=== PATIENT | female | born 1995 | race Caucasian/White ===

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

== ENCOUNTER 2017-02-27 08:51 | Emergency (ER) | payer OTHER ==
[~2017-02-27] VITALS: Ht 167.6 cm; Wt 59.1 kg
[~2017-02-27 08:51] MED LIST changes: -FIOR1CAP PO; -IBUP80TA PO; -ONDA8TAB8 PO; -RIZA10TA2 PO; -XULA1DIS
[2017-02-27] MEDS ORDERED: RIZA10TA2 PO (09:09)
[2017-02-27] MEDS ORDERED: XULA1DIS (09:09)
[2017-02-27] MEDS ORDERED: FIOR1CAP PO (09:09)
[2017-02-27] MEDS ORDERED: ONDANSETRON 4 MG ORAL DISINTEGRATING TAB (S0181) PO ONE (11:15)
[2017-02-27] MEDS ORDERED: KETOROLAC 60 MG/2 ML VIAL (J1885) IM ONE (11:15)
[2017-02-27] MEDS ORDERED: IBUP80TA PO (12:04)
[2017-02-27] MEDS ORDERED: ONDA8TAB8 PO (12:05)
[2017-02-27 12:16] VITALS: BP 122/63
== END 2017-02-27 12:17 | disposition home or self-care (01) ==
LOC: M ED 08:51
DX: G43.909 Migraine, unspecified, not intractable, without status migrainosus (principal)
CPT/HCPCS: 96372; 99283; J1885

== ENCOUNTER → 2017-05-07 | Outpatient (REF) | payer OTHER | LOC: M LAB REF 16:20 | DX: J02.9 Acute pharyngitis, unspecified (principal) ==

== ENCOUNTER 2017-08-28 07:16 | Emergency (ER) | payer OTHER ==
[2017-08-28 08:27] LABS: BASO % 0.4 % (0.0-1.0); EOS # 0.2 10^3/uL (0.0-0.50); EOS % 3.3 % (0.0-3.0); HEMOGLOBIN 13.7 g/dl (12.0-15.5); IMMATURE GRANULOCYTE % 0.4 % (0-3.0); LYMPH # 2.1 10^3/uL (1.5-6.5); LYMPH % 43.8 % (24.0-44.0); MEAN CORPUSCULAR HEMOGLOBIN 29.7 pg (27.0-33.0); MEAN CORPUSCULAR HGB CONC 35.1 g/dl (32.0-36.5); MEAN CORPUSCULAR VOLUME 84.6 fl (80.0-96.0); MONO # 0.5 10^3/uL (0.0-0.8); MONO % 9.5 % (0.0-5.0); NEUTROPHILS # 2.1 10^3/uL (1.8-7.7); NEUTROPHILS % 42.6 % (36.0-66.0); PLATELET COUNT, AUTOMATED 219 10^3/uL (150-450); RED BLOOD COUNT 4.61 10^6/uL (4.00-5.40); RED CELL DISTRIBUTION WIDTH 12.5 % (11.5-14.5); WHITE BLOOD COUNT 4.8 10^3/uL (4.0-10.0)
[2017-08-28 08:41] LABS: INR 1.02; PROTHROMBIN TIME 13.5 SECONDS (12.4-14.5)
[2017-08-28 08:42] LABS: PARTIAL THROMBOPLASTIN TIME 29.7 SECONDS (26.8-37.9)
[2017-08-28 08:44] LABS: CONTROL LINE HCG INT CTR LINE PRESENT; HCG, SERUM QUALITATIVE NEGATIVE (NEGATIVE)
[2017-08-28 08:50] LABS: ANION GAP 6 MEQ/L (8-16); BLOOD UREA NITROGEN 6 MG/DL (7-18); CALCIUM LEVEL 8.8 MG/DL (8.5-10.1); CARBON DIOXIDE LEVEL 27 MEQ/L (21-32); CHLORIDE LEVEL 109 MEQ/L (98-107); CPK CREATINE PHOSPHOKINASE 90 U/L (26-192); CREATININE FOR GFR 1.04 MG/DL (0.55-1.30); GLUCOSE, FASTING 90 MG/DL (70-100); SODIUM LEVEL 142 MEQ/L (136-145); TROPONIN I < 0.02 NG/ML (< 0.10)
[2017-08-28 08:51] LABS: CK-MB VALUE MASS < 1.0 NG/ML (<3.6); MB/CK RELATIVE INDEX 1.11 (< OR =4)
[2017-08-28] MEDS: METOCLOPRAMIDE INJ 10MG/2ML VIAL (J2765) IV (09:56)
[2017-08-28] MEDS: KETOROLAC 30 MG/ML VIAL (J1885) IV (11:19)
== END 2017-08-28 12:37 | disposition home or self-care (01) ==
LOC: M ED 07:16
DX: G43.909 Migraine, unspecified, not intractable, without status migrainosus (principal); Z79.899 Other long term (current) drug therapy
CPT/HCPCS: J1885

== ENCOUNTER → 2018-02-18 | Outpatient (REF) | payer OTHER ==
[2018-02-18 16:42] LABS: AMYLASE 57 U/L (25-115)
[2018-02-18 16:42] LABS: LIPASE 107 U/L (73-393)
== END ==
LOC: M LAB REF 15:55
DX: R10.816 Epigastric abdominal tenderness (principal)
CPT/HCPCS: 82150

== ENCOUNTER → 2022-05-21 | Outpatient (REF) | payer OTHER ==
[~2022-05-21] MED LIST changes: +CEFD300C41 PO; +FIOR1CAP PO; +IBUP80TA PO; +IMIT50TA PO; +ONDA8TAB8 PO; +PAME10CA PO; +RIZA10TA2 PO; +XULA1DIS; +ZOFR4TAB14 PO; -ZOFR4TAB3 PO
== END ==
LOC: M LAB REF 16:36
PROVIDERS: ATTEND Obstetrics & Gynecology
DX: R10.2 Pelvic and perineal pain (principal)

== ENCOUNTER → 2022-05-25 | Outpatient (REF) | payer OTHER | LOC: M LAB REF 12:18 | PROVIDERS: ATTEND Obstetrics & Gynecology | DX: O36.80X0 Pregnancy with inconclusive fetal viability, not applicable or unspecified (principal) ==

== ENCOUNTER → 2022-05-27 | Outpatient (REF) | payer OTHER | LOC: M LAB REF 16:33 | PROVIDERS: ATTEND Obstetrics & Gynecology | DX: O36.80X0 Pregnancy with inconclusive fetal viability, not applicable or unspecified (principal); Z3A.00 Weeks of gestation of pregnancy not specified ==

== ENCOUNTER → 2022-06-03 | Outpatient (REF) | payer OTHER | LOC: M LAB REF 12:22 | PROVIDERS: ATTEND Obstetrics & Gynecology | DX: O36.80X0 Pregnancy with inconclusive fetal viability, not applicable or unspecified (principal); Z3A.00 Weeks of gestation of pregnancy not specified ==

== ENCOUNTER → 2022-06-25 | Outpatient (REF) | payer OTHER ==
[2022-06-25 17:51] LABS: HEMATOCRIT 38.6 % (36.0-47.0); HEMOGLOBIN 13.7 g/dl (12.0-15.5); MEAN CORPUSCULAR HEMOGLOBIN 30.9 pg (27.0-33.0); MEAN CORPUSCULAR HGB CONC 35.5 g/dl (32.0-36.5); MEAN CORPUSCULAR VOLUME 87.1 fl (80.0-96.0); PLATELET COUNT, AUTOMATED 269 10^3/uL (150-450); RED BLOOD COUNT 4.43 10^6/uL (4.00-5.40); WHITE BLOOD COUNT 7.8 10^3/uL (4.0-10.0)
[2022-06-25 18:10] LABS: HEPATITIS B SURFACE ANTIGEN NEGATIVE (NEGATIVE)
[2022-06-25 18:23] LABS: HIV 1&2 SCREEN CENTAUR NEGATIVE (NEGATIVE)
[2022-06-25 18:31] LABS: HEPATITIS C VIRUS ABY INDEX < 0.0 INDEX (<0.8)
== END ==
LOC: M LAB REF 16:19
PROVIDERS: ATTEND Obstetrics & Gynecology
DX: Z34.01 Encounter for supervision of normal first pregnancy, first trimester (principal)

== ENCOUNTER → 2022-09-10 | Outpatient (CLI) | payer OTHER, MEDICAID | LOC: M RAD 15:58 | PROVIDERS: ATTEND Obstetrics & Gynecology | DX: Z34.82 Encounter for supervision of other normal pregnancy, second trimester (principal) ==

== ENCOUNTER → 2022-10-28 | Outpatient (CLI) | payer OTHER, MEDICAID ==
[2022-10-28 17:00] LABS: HEMOGLOBIN 11.2 g/dl (12.0-15.5); MEAN CORPUSCULAR VOLUME 94.4 fl (80.0-96.0); PLATELET COUNT, AUTOMATED 207 10^3/uL (150-450); RED BLOOD COUNT 3.39 10^6/uL (4.00-5.40); WHITE BLOOD COUNT 8.7 10^3/uL (4.0-10.0)
== END ==
LOC: M WUC 13:35
PROVIDERS: ATTEND Obstetrics & Gynecology
DX: Z34.02 Encounter for supervision of normal first pregnancy, second trimester (principal)
CPT/HCPCS: 36415; 82950; 85027; 86850; 86901; J2790

== ENCOUNTER → 2022-12-30 | Outpatient (REF) | payer OTHER, MEDICAID | LOC: M LAB REF 16:06 | PROVIDERS: ATTEND Obstetrics & Gynecology | DX: Z36.85 Encounter for antenatal screening for Streptococcus B (principal) ==

== ENCOUNTER 2023-01-14 02:33 | Outpatient (CLI) | payer OTHER, MEDICAID ==
[~2023-01-14] VITALS: Ht 167.6 cm; Wt 83.1 kg
[2023-01-14] MEDS ORDERED: PRENTAB9 PO (03:07)
[2023-01-14] MEDS ORDERED: HOME MED LIST COMPLETE! XX SCH (03:10)
[2023-01-14 03:38] VITALS: BP 131/81
== END 2023-01-14 03:30 | disposition home or self-care (01) ==
LOC: M LDO 02:33
PROVIDERS: ATTEND Advanced Practice Midwife
DX: O26.893 Other specified pregnancy related conditions, third trimester (principal); N89.8 Other specified noninflammatory disorders of vagina; Z3A.38 38 weeks gestation of pregnancy
CPT/HCPCS: 59025; G0463

== ENCOUNTER 2023-02-04 01:53 | Inpatient (IN) | payer OTHER, MEDICAID ==
[2023-02-04] VITALS (12 sets, daily range): BP systolic 116–132; BP diastolic 60–77; TEMP 97; O2SAT 99
[~2023-02-04] VITALS: Ht 167.6 cm; Wt 84.0 kg
[~2023-02-04 01:53] MED LIST changes: +PRENTAB9 PO
[2023-02-04] MEDS ORDERED: LACTATED RINGER'S 1000 ML IV STA (03:49)
[2023-02-04] MEDS ORDERED: LR 1,000 ML IV SCH (03:50)
[2023-02-04] MEDS ORDERED: METHYLERGONOVINE MALEATE 0.2MG/ML 1ML VIAL IM PRN (03:50)
[2023-02-04] MEDS ORDERED: OXYTOCIN INJ 10UNITS/ML 1ML VIAL IM PRN (03:50)
[2023-02-04] MEDS ORDERED: NALBUPHINE HCL (10 MG/ML) 100MG/10ML MDV IV ONE (03:50)
[2023-02-04] MEDS ORDERED: LIDOCAINE 1% MDV 20ML VIAL INFIL PRN (03:50)
[2023-02-04] MEDS ORDERED: CARBOPROST TROMETHAMINE 250 MCG/ML AMP IM PRN (03:50)
[2023-02-04] MEDS ORDERED: PROMETHAZINE 25MG/ML 1ML VIAL IV ONE (03:50)
[2023-02-04] MEDS ORDERED: TRANEXAMIC ACID INJection 1,000 MG in NS 100 ML IV PRN (03:50)
[2023-02-04] MEDS ORDERED: OXYTOCIN DRIP 30 UNITS in IV 1 EA IV PRN ×4 (03:50)
[2023-02-04 04:36] LABS: HEMATOCRIT 33.7 % (36.0-47.0); HEMOGLOBIN 11.8 g/dl (12.0-15.5); MEAN CORPUSCULAR HEMOGLOBIN 31.6 pg (27.0-33.0); MEAN CORPUSCULAR VOLUME 90.3 fl (80.0-96.0); PLATELET COUNT, AUTOMATED 204 10^3/uL (150-450); RED BLOOD COUNT 3.73 10^6/uL (4.00-5.40); WHITE BLOOD COUNT 17.2 10^3/uL (4.0-10.0)
[2023-02-04] MEDS ORDERED: BICITRA 30ML SOLN UDC PO ONE (04:40)
[2023-02-04] MEDS ORDERED: AZITHROMYCIN INJ 500 MG, VIAL MATE ADAPTER 1 EACH in NS 250 ML IV ONE (04:40)
[2023-02-04] MEDS ORDERED: ceFAZolin SOD 2 GM in IV 1 EA IV ONE (04:40)
[2023-02-04] MEDS ORDERED: MIDAZOLAM INJ 2MG/2ML VIAL As Ordered ONE (05:20)
[2023-02-04] MEDS ORDERED: OXYTOCIN INJ 10UNITS/ML 1ML VIAL As Ordered ONE (05:20)
[2023-02-04] MEDS ORDERED: ONDANSETRON 4MG 2ML VIAL As Ordered ONE (05:20)
[2023-02-04] MEDS ORDERED: propofoL 200 MG/20 ML VIAL As Ordered ONE (05:20)
[2023-02-04] MEDS ORDERED: KETOROLAC 60MG 2ML VIAL As Ordered ONE (05:20)
[2023-02-04] MEDS ORDERED: MORPHINE PRES-FREE INJ 10 MG/10 ML VIAL As Ordered ONE (05:20)
[2023-02-04] MEDS ORDERED: ACETAMINOPHEN 1000MG 100ML IV BAG As Ordered ONE (05:20)
[2023-02-04] MEDS ORDERED: SUCCINYLCHOLINE 100MG/5ML SYRINGE As Ordered ONE (05:20)
[2023-02-04] MEDS ORDERED: fentaNYL 100 MCG/2 ML INJECTION As Ordered ONE (05:20)
[2023-02-04] MEDS ORDERED: METOCLOPRAMIDE INJ 10MG/2ML VIAL As Ordered ONE (05:20)
[2023-02-04] MEDS ORDERED: EPIDURAL/PCA KEYS XX PRN (05:40)
[2023-02-04] MEDS ORDERED: NALOXONE INJ 0.4MG/1ML VIAL IV PRN (05:40)
[2023-02-04] MEDS ORDERED: RHOGAM 300MCG (1500IU) INJ IM SCH (05:40)
[2023-02-04] MEDS ORDERED: ONDANSETRON 4MG 2ML VIAL IV PRN (05:40)
[2023-02-04] MEDS ORDERED: ACETAMINOPHEN TAB 650MG DOSE (2X325MG) PO PRN (05:40)
[2023-02-04] MEDS ORDERED: MOM 30ML SUSPENSION UDC PO PRN (05:40)
[2023-02-04] MEDS ORDERED: diphenhydrAMINE 50MG/ML VIAL IV PRN (05:40)
[2023-02-04] MEDS ORDERED: SIMETHICONE 80MG CHEW TAB PO PRN (05:40)
[2023-02-04] MEDS ORDERED: OXYTOCIN DRIP 30 UNITS in IV 1 EA IV SCH (05:40)
[2023-02-04] MEDS ORDERED: LIDOCAINE 1% SDV 30ML VIAL As Ordered ONE (05:43)
[2023-02-04] MEDS ORDERED: COLA100C5 PO (06:06)
[2023-02-04] MEDS ORDERED: IBUP80TA PO (06:06)
[2023-02-04] MEDS ORDERED: PERC5TAB12 PO (06:06)
[2023-02-04] MEDS: NS 1,000 ML IV SCH (07:36)
[2023-02-04] MEDS ORDERED: HOME MED LIST COMPLETE! XX SCH (07:45)
[2023-02-04] MEDS ORDERED: MORPHINE 1MG/ML IN 0.9% NACL 100ML IV BAG IV PRN (08:00)
[2023-02-04] MEDS: DOCUSATE SODIUM 100MG CAPSULE PO SCH ×2 (09:20→20:48)
[2023-02-04] MEDS: PRENATAL VITAMINS CHEWABLE TABLET PO SCH (09:20)
[2023-02-04] MEDS: KETOROLAC 30 MG/ML 1ML VIAL IV SCH ×2 (13:29→18:54)
[2023-02-05] MEDS: KETOROLAC 30 MG/ML 1ML VIAL IV SCH (00:26)
[2023-02-05] MEDS: NS 1,000 ML IV SCH (05:24)
[2023-02-05 06:00] VITALS: BP 120/63; O2SAT 100
[2023-02-05 07:36] LABS: HEMATOCRIT 22.2 % (36.0-47.0); MEAN CORPUSCULAR HEMOGLOBIN 32.3 pg (27.0-33.0); MEAN CORPUSCULAR HGB CONC 33.8 g/dl (32.0-36.5); MEAN CORPUSCULAR VOLUME 95.7 fl (80.0-96.0); PLATELET COUNT, AUTOMATED 178 10^3/uL (150-450); RED BLOOD COUNT 2.32 10^6/uL (4.00-5.40); WHITE BLOOD COUNT 17.1 10^3/uL (4.0-10.0)
[2023-02-05 07:38] LABS: HEMOGLOBIN 7.5 g/dl (12.0-15.5)
[2023-02-05] MEDS: IBUPROFEN 800 MG TAB PO SCH ×2 (09:01→17:38)
[2023-02-05] MEDS: PRENATAL VITAMINS CHEWABLE TABLET PO SCH (09:01)
[2023-02-05] MEDS: DOCUSATE SODIUM 100MG CAPSULE PO SCH ×2 (09:02→20:57)
[2023-02-05] MEDS ORDERED: fentaNYL 100 MCG/2 ML INJECTION IV PRN (11:00)
[2023-02-05] MEDS ORDERED: LR 1,000 ML IV SCH (11:00)
[2023-02-05] MEDS ORDERED: ONDANSETRON 4MG 2ML VIAL IV PRN (11:00)
[2023-02-05] MEDS ORDERED: HYDROMORPHONE HCL 0.5 MG/ 0.5 ML SYRINGE IV PRN (11:00)
[2023-02-05] MEDS ORDERED: oxyCODONE 5MG TAB PO PRN (11:00)
[2023-02-05 12:00] VITALS: BP 122/57; O2SAT 98
[2023-02-05 14:00] VITALS: BP 119/59; O2SAT 99
[2023-02-05 17:51] VITALS: BP 125/59; O2SAT 100
[2023-02-05] MEDS ORDERED: PERCOCET 5MG/325MG TAB PO PRN ×2 (18:00)
[2023-02-05] MEDS: ACETAMINOPHEN 500 MG TAB PO PRN (20:57)
[2023-02-05 22:00] VITALS: BP 130/64; O2SAT 98
[2023-02-06] MEDS: IBUPROFEN 800 MG TAB PO SCH ×2 (01:04→07:14)
[2023-02-06 02:00] VITALS: BP 119/58; O2SAT 100
[2023-02-06 05:47] VITALS: BP 125/72; O2SAT 100
[2023-02-06] MEDS: DOCUSATE SODIUM 100MG CAPSULE PO SCH (07:14)
[2023-02-06] MEDS: PRENATAL VITAMINS CHEWABLE TABLET PO SCH (07:15)
[2023-02-06] MEDS ORDERED: MEASLES,MUMPS,RUBELLA VACCINE INJ (MMR-II) SC.IMMUN ONE (09:00)
[2023-02-06 10:00] VITALS: BP 130/65; O2SAT 97
[2023-02-06] MEDS: ACETAMINOPHEN 500 MG TAB PO PRN (10:33)
== END 2023-02-06 17:05 | disposition home or self-care (01) | DRG 788 ==
LOC: M LDO 01:53 → M LDI 03:52 → M OBS 17:25
PROVIDERS: ADMIT Advanced Practice Midwife; ATTEND Advanced Practice Midwife
PROC: 10D00Z1 Extraction of Products of Conception, Low, Open Approach (ICD-10-PCS; principal; 2023-02-04 06:09)
DX: O32.1XX0 Maternal care for breech presentation, not applicable or unspecified (principal); Z37.0 Single live birth; Z3A.41 41 weeks gestation of pregnancy; O48.0 Post-term pregnancy